=== PATIENT | female | born 1940 | race Caucasian/White ===

== ENCOUNTER 2018-12-18 14:02 | Emergency (ER) | payer OTHER ==
[2018-12-18] MEDS ORDERED: MEPERIDINE HCL 25 MG/0.5 ML ONE ×2 (14:39→16:12)
--- NOTE | 2018-12-18 15:36 | RAD REPORT ---
EXAM DESCRIPTION: RAD - Humerus Left - 12/18/2018 3:18 pm CLINICAL HISTORY: Left arm pain status post fall FINDINGS: An impaction fracture of the humeral neck suspected. The bones are osteoporotic
--- NOTE | 2018-12-18 15:43 | RAD REPORT ---
EXAM DESCRIPTION: USExtremity Venous Uni Ltd12/18/2018 3:38 pm CLINICAL HISTORY: left leg pain and swelling. COMPARISON: None. FINDINGS: Left common femoral, superficial femoral, popliteal and posterior tibial veins are compre ssible and demonstrate augmentation. Doppler demonstrates good flow. IMPRESSION: No evidence of deep venous thrombosis involving the left lower extremity.
--- NOTE | 2018-12-18 16:01 | EDPHYS ---
Physician Documentation [facility] Name: Hai Camp Age: 78 yrs Sex: Female : 1940 Arrival Date: 12/18/2018 Time: 14:04 Bed 25 Private MD: Arnoldo Farrell E ED Physician Christian Munoz HPI: 12/18 15:26 This 78 yrs old Female presents to ER via Wheelchair with complaints of Fall rn Injury. 15:26 Details of fall: The patient fell from an upright position. Onset: The symptoms/episode rn began/occurred just prior to arrival. Associated injuries: The patient sustained left arm. Severity of symptoms: At their worst the symptoms were moderate, in the emergency department the symptoms are unchanged. The patient has not experienced similar symptoms in the past. Reports fell, left arm tucked in, reports pain to left upper arm, also reports has been having left leg numbness and pain similar to her right sided sciatica and would like that checked as well. No loc, did not hit head. . Historical: - Allergies: 14:14 Codeine; la1 14:14 Cipro; la1 - PMHx: 14:14 Hypertension; la1 - Immunization history:: Adult Immunizations up to date. - Social history:: Smoking status: Patient/guardian denies using tobacco. - Immunization history: Last tetanus immunization: unknown. - Ebola Screening: : No symptoms or risks identified at this time. - Family history:: not pertinent. - Hospitalizations: : No recent hospitalization is reported. ROS: 15:26 Constitutional: Negative for fever, chills, and weight loss, Eyes: Negative for injury, rn pain, redness, and discharge, Neck: Negative for injury, pain, and swelling, Cardiovascular: Negative for chest pain, palpitations, and edema, Respiratory: Negative for shortness of breath, cough, wheezing, and pleuritic chest pain, Abdomen/GI: Negative for abdominal pain, nausea, vomiting, diarrhea, and constipation, Back: Negative for injury and pain, MS/Extremity: + left arm injury adn pain Skin: Negative for injury, rash, and discoloration, Neuro: Negative for headache, weakness, numbness, tingling, and seizure. Exam: 15:26 Constitutional: This is a well developed, well nourished patient who is awake, alert, rn appears in pain, holding left arm passive flexion and internal rotation Head/Face: Normocephalic, atraumatic. Eyes: Pupils equal round and reactive to light, extra-ocular motions intact. Lids and lashes normal. Conjunctiva and sclera are non-icteric and not injected. Cornea within normal limits. Periorbital areas with no swelling, redness, or edema. Neck: Trachea midline, no thyromegaly or masses palpated, and no cervical lymphadenopathy. Supple, full range of motion without nuchal rigidity, or vertebral point tenderness. No Meningismus. Chest/axilla: Nontender with no deformity. Back: No spinal tenderness. No costovertebral tenderness. Full range of motion. Skin: Warm, dry with normal turgor. Normal color with no rashes, no lesions, and no evidence of cellulitis. MS/ Extremity: Pulses equal, no cyanosis. Neurovascular intact. Full, normal range of motion. Equal circumference. Neuro: Awake and alert, GCS 15, oriented to person, place, time, and situation. Cranial nerves II-XII grossly intact. Motor strength 5/5 in all extremities. Sensory grossly intact. Cerebellar exam normal. Vital Signs: 14:14 Weight 79.38 kg; Height 5 ft. 5 in. (165.10 cm); la1 14:29 BP 161 / 81; Pulse 86; Resp 18; Temp 98.6(O); Pulse Ox 100% on R/A; aj1 15:30 BP 144 / 82; Pulse 81; Resp 18; Pulse Ox 98% on R/A; aj1 16:30 BP 141 / 82; Pulse 82; Resp 18; Pulse Ox 97% ; aj1 14:14 Body Mass Index 29.12 (79.38 kg, 165.10 cm) la1 Sophia Coma Score: 14:29 Eye Response: spontaneous(4). Verbal Response: oriented(5). Motor Response: obeys aj1 commands(6). Total: 15. 16:30 Eye Response: spontaneous(4). Verbal Response: oriented(5). Motor Response: obeys aj1 commands(6). Total: 15. Trauma Score (Adult): 14:29 Eye Response: spontaneous(1); Verbal Response: oriented(1); Motor Response: obeys aj1 commands(2); Systolic BP: > 89 mm Hg(4); Respiratory Rate: 10 to 29 per min(4); [place] Score: 15; Trauma Score: 12 15:30 Eye Response: spontaneous(1); Verbal Response: oriented(1); Motor Response: obeys aj1 commands(2); Systolic BP: > 89 mm Hg(4); Respiratory Rate: 10 to 29 per min(4); Sophia Score: 15; Trauma Score: 12 MDM: 14:09 Patient medically screened. rn 15:59 Differential diagnosis: contusion, fracture, sprain, strain. Data reviewed: vital rn signs, nurses notes, radiologic studies, doppler, plain films, and as a result, I will discharge patient. Counseling: I had a detailed discussion with the patient and/or guardian regarding: the historical points, exam findings, and any diagnostic results supporting the discharge/admit diagnosis, radiology results, the need for outpatient follow up, to return to the emergency department if symptoms worsen or persist or if there are any questions or concerns that arise at home. Special discussion: I discussed with the patient/guardian in detail that at this point there is no indication for admission to the hospital. It is understood, however, that if the symptoms persist or worsen the patient needs to return immediately for re-evaluation. Based on the history and exam findings, there is no indication for further emergent testing or inpatient evaluation. I discussed with the patient/guardian the need to see the orthopedic surgeon for further evaluation of the symptoms. 12/18 14:23 Order name: XRAY Humerus LEFT; Complete Time: 15:48 rn 12/18 14:23 Order name: Extremity Venous Uni Ltd US; Complete Time: 15:48 rn 12/18 14:24 Order name: Sling; Complete Time: 14:28 rn Administered Medications: 14:30 Drug: Demerol 25 mg Route: IM; Site: right deltoid; aj1 15:45 Follow up: Response: No adverse reaction aj1 16:06 Drug: Demerol 25 mg Route: IM; Site: right deltoid; aj1 16:47 Follow up: Response: No adverse reaction aj1 Disposition: 12/18/18 16:00 Discharged to Home. Impression: Acute, closed, left proximal humerus fracture, Radiculopathy, lumbar region. - Condition is Stable. - Discharge Instructions: Humerus Fracture Treated With Immobilization, Lumbosacral Radiculopathy. - Prescriptions for Cyclobenzaprine 10 mg Oral Tablet - take 1 tablet by ORAL route every 8 hours As needed; 30 tablet. Tramadol 50 mg Oral Tablet - take 1 tablet by ORAL route every 8 hours as needed; 30 tablet. - Medication Reconciliation Form, Thank You Letter, Antibiotic Education, Prescription Opioid Use form. - Follow up: Eris Huerta MD; When: As needed; Reason: Recheck today's complaints, Re-evaluation by your physician. - Problem is new. - Symptoms have improved. Signatures: Dispatcher [employer] EDMS Diana Donohue RN RN aj1 Christian Munoz MD MD rn Frankie An RN RN la1 Corrections: (The following items were deleted from the chart) 16:48 16:00 12/18/2018 16:00 Discharged to Home. Impression: Acute, closed, left proximal aj1 humerus fracture; Radiculopathy, lumbar region. Condition is Stable. Forms are Medication Reconciliation Form, Thank You Letter, Antibiotic Education, Prescription Opioid Use. Follow up: Eris Huerta; When: As needed; Reason: Recheck today's complaints, Re-evaluation by your physician. Problem is new. Symptoms have improved. rn
--- NOTE | 2018-12-18 16:01 | ER ---
Nurse's Notes [facility] Name: Hai Camp Age: 78 yrs Sex: Female : 1940 Arrival Date: 12/18/2018 Time: 14:04 Bed 25 Private MD: Arnoldo Farrell E Diagnosis: Acute, closed, left proximal humerus fracture;Radiculopathy, lumbar region Presentation: 12/18 14:13 Presenting complaint: Patient states: I have had left lower leg pain for one week and la1 today I fell because of it and I think I broke my left arm. Transition of care: patient was not received from another setting of care. Onset of symptoms was December 18, 2018. Risk Assessment: Do you want to hurt yourself or someone else? Patient reports no desire to harm self or others. Initial Sepsis Screen: Does the patient meet any 2 criteria? No. Patient's initial sepsis screen is negative. Does the patient have a suspected source of infection? No. Patient's initial sepsis screen is negative. Care prior to arrival: None. 14:13 Method Of Arrival: Wheelchair la1 14:13 Acuity: CAMELIA 3 la1 14:29 Mechanism of Injury: Fall from standing position. Trauma event details: Injury occurred aj1 in the [facility]. Trauma Activation: Not Applicable Physician: ED Physician; Name: ; Notified At: ; Arrived At: Physician: General Surgeon; Name: ; Notified At: ; Arrived At: Physician: Radiology; Name: ; Notified At: ; Arrived At: Physician: Respiratory; Name: ; Notified At: ; Arrived At: Physician: Lab; Name: ; Notified At: ; Arrived At: Historical: - Allergies: 14:14 Codeine; la1 14:14 Cipro; la1 - PMHx: 14:14 Hypertension; la1 - Immunization history:: Adult Immunizations up to date. - Social history:: Smoking status: Patient/guardian denies using tobacco. - Immunization history: Last tetanus immunization: unknown. - Ebola Screening: : No symptoms or risks identified at this time. - Family history:: not pertinent. - Hospitalizations: : No recent hospitalization is reported. Screenin:29 Abuse screen: Denies threats or abuse. Denies injuries from another. Tuberculosis aj1 screening: No symptoms or risk factors identified. 14:39 Nutritional screening: No deficits noted. aj1 16:46 Fall Risk Fall in past 12 months (25 points). No secondary diagnosis (0 pts). No IV (0 aj1 pts). Ambulatory Aid- None/Bed Rest/Nurse Assist (0 pts). Gait- Normal/Bed Rest/Wheelchair (0 pts) Mental Status- Oriented to own ability (0 pts). Total Pedroza Fall Scale indicates Low Risk Score (25-44 pts). As available Patient and Family Educated on Fall Prevention Program and strategies. Primary Survey: 14:29 NO uncontrolled hemorrhage observed. A: The patient is alert. Airway: patent. aj1 Breathing/Chest: Respiratory pattern: regular, Respiratory effort: spontaneous, unlabored. Circulation: Skin color: pink. Disability Alert. Exposure/Environment: There is no evidence of uncontrolled external bleeding. A warming method has been applied: A warm blanket has been provided to the patient. 15:30 Reassessment Airway Airway Patent Breathing/Chest Respiratory pattern Regular aj1 Respiratory effort Spontaneous Unlabored Circulation Pulses Palpable Color [place] Disability Alert. Secondary Survey: 14:29 HEENT: No deficits noted. Gastrointestinal: No deficits noted. : No deficits noted. aj1 Musculoskeletal: Range of motion: limited in left shoulder. Assessment: 14:29 General: Appears uncomfortable, Behavior is cooperative, restless. Pain: Complains of aj1 pain in left bicep and left tricep Pain currently is 10 out of 10 on a pain scale. Neuro: Level of Consciousness is awake, alert, obeys commands, Oriented to person, place, time, situation, Speech is normal. EENT: No signs and/or symptoms were reported regarding the EENT system. Cardiovascular: Patient's skin is warm and dry. Respiratory: Airway is patent Respiratory effort is even, unlabored, Respiratory pattern is regular, symmetrical. GI: No signs and/or symptoms were reported involving the gastrointestinal system. : No signs and/or symptoms were reported regarding the genitourinary system. Derm: Skin is pink, warm \T\ dry. normal. Musculoskeletal: Range of motion: limited in left shoulder. Injury Description: Patient fell onto her left arm. 15:30 Reassessment: Patient appears in no apparent distress at this time. No changes from aj1 previously documented assessment. Patient and/or family updated on plan of care and expected duration. Pain level reassessed. Patient is alert, oriented x 3, equal unlabored respirations, skin warm/dry/pink. 15:59 Reassessment: Dr. Munoz at bedside. aj1 16:30 Reassessment: Patient appears in no apparent distress at this time. No changes from aj1 previously documented assessment. Patient and/or family updated on plan of care and expected duration. Pain level reassessed. Patient is alert, oriented x 3, equal unlabored respirations, skin warm/dry/pink. Vital Signs: 14:14 Weight 79.38 kg; Height 5 ft. 5 in. (165.10 cm); la1 14:29 BP 161 / 81; Pulse 86; Resp 18; Temp 98.6(O); Pulse Ox 100% on R/A; aj1 15:30 BP 144 / 82; Pulse 81; Resp 18; Pulse Ox 98% on R/A; aj1 16:30 BP 141 / 82; Pulse 82; Resp 18; Pulse Ox 97% ; aj1 14:14 Body Mass Index 29.12 (79.38 kg, 165.10 cm) la1 [place] Coma Score: 14:29 Eye Response: spontaneous(4). Verbal Response: oriented(5). Motor Response: obeys aj1 commands(6). Total: 15. 16:30 Eye Response: spontaneous(4). Verbal Response: oriented(5). Motor Response: obeys aj1 commands(6). Total: 15. Trauma Score (Adult): 14:29 Eye Response: spontaneous(1); Verbal Response: oriented(1); Motor Response: obeys aj1 commands(2); Systolic BP: > 89 mm Hg(4); Respiratory Rate: 10 to 29 per min(4); [place] Score: 15; Trauma Score: 12 15:30 Eye Response: spontaneous(1); Verbal Response: oriented(1); Motor Response: obeys aj1 commands(2); Systolic BP: > 89 mm Hg(4); Respiratory Rate: 10 to 29 per min(4); Sophia Score: 15; Trauma Score: 12 ED Course: 14:04 Patient arrived in ED. mr 14:05 Arnoldo Farrell MD is Private Physician. mr 14:09 Christian Munoz MD is Attending Physician. rn 14:14 Triage completed. la1 14:15 Arm band placed on left wrist. la1 14:28 Diana Donohue, RN is Primary Nurse. aj1 14:29 Patient has correct armband on for positive identification. aj1 14:29 Patient maintains SpO2 saturation greater than 95% on room air. aj1 14:30 Thermoregulation: warm blanket given to patient. aj1 14:39 No provider procedures requiring assistance completed. aj1 15:18 XRAY Humerus LEFT In Process Unspecified. EDMS 15:38 Ultrasound completed. Patient tolerated well. Notified ED Physician skip. sg3 15:39 Extremity Venous Uni Ltd US In Process Unspecified. EDMS 15:59 Eris Heurta MD is Referral Physician. rn 16:45 Patient did not have IV access during this emergency room visit. aj1 Administered Medications: 14:30 Drug: Demerol 25 mg Route: IM; Site: right deltoid; aj1 15:45 Follow up: Response: No adverse reaction aj1 16:06 Drug: Demerol 25 mg Route: IM; Site: right deltoid; aj1 16:47 Follow up: Response: No adverse reaction aj1 Intake: 16:45 PO: 0ml; Total: 0ml. aj1 Outcome: 16:00 Discharge ordered by . rn 16:47 Discharged to home via wheelchair, with family. aj1 16:47 Condition: good 16:47 Discharge instructions given to patient, family, Instructed on discharge instructions, follow up and referral plans. medication usage, Demonstrated understanding of instructions, follow-up care, medications, Prescriptions given X 2. 16:47 Patient's length of stay in the Emergency Department was greater than 2 hours. Patient waiting for adequate pain relief prior to leaving ERPatient's length of stay extended due to 16:48 Patient left the ED. aj1 Signatures: Dispatcher [employer] EDME Diana Donohue, RN RN Jeanine James Christian Munoz MD MD rn Attema, Lee, RN RN Kirsten Saavedra sg3
== END 2018-12-18 16:48 | disposition home or self-care (01) ==
LOC: ER 14:02
DX: S42.202A Unspecified fracture of upper end of left humerus, initial encounter for closed fracture (principal); M54.16 Radiculopathy, lumbar region; W19.XXXA Unspecified fall, initial encounter; Y93.9 Activity, unspecified; Y92.9 Unspecified place or not applicable; Z88.1 Allergy status to other antibiotic agents; Z88.5 Allergy status to narcotic agent; I10 Essential (primary) hypertension
CPT/HCPCS: 73060; 93971; 96372; 99284; J2175 ×2

== ENCOUNTER 2020-02-12 16:56 | Emergency (ER) | payer OTHER ==
[2020-02-12] MEDS ORDERED: NA CHLORIDE 0.9% 500 ML ONE (17:30)
[2020-02-12 17:41] LABS: Absolute Lymphocytes (CBC) 1.5 K/uL (0.7-4.9); Basophils % 1.4 % (0-1.3); Hematocrit 41.3 % (36.0-45.0); Lymphocytes % 27.5 % (15.3-44.8); MPV 7.9 fL (7.6-11.3); RBC Red Blood Cell Count 4.31 M/uL (3.86-4.86)
--- NOTE | 2020-02-12 17:50 | RAD REPORT ---
EXAM DESCRIPTION: CT - Head Brain Wo Cont - 02/12/2020 5:36 pm CLINICAL HISTORY: SYNCOPE, dizziness, loss of consciousness, hypertension history, breast cancer his tory COMPARISON: No comparisons TECHNIQUE: Axial 5 mm thick images of the head were obtained without IV contrast. All CT scans are performed using dose optimization technique as appropriate and may include automated exposure control or mA/KV adjustment according to patient size. FINDINGS: No intracranial hemorrhage, mass, edema or shift of mid-line structures. No acute infarcti on changes seen. No cortical edema or sulcal effacement. Mild to moderate atrophy and mild to moderat e chronic ischemic changes are present. Ventricles are in proportion to volume loss. Arterial and phy siologic calcifications are present. Mastoid air cells and visualized portions of the paranasal sinuses are clear. No acute bony findings. IMPRESSION: No acute intracranial finding identifiable. Mild to moderate atrophy and chronic ischemic change. Chronic ischemic changes can mask nonhemorrhagic acute infarction. MR brain followup can be obtained if there is ongoing concern for acute ischemia.
--- NOTE | 2020-02-12 17:56 | RAD REPORT ---
EXAM DESCRIPTION: CT - Pelvis Wo Cont - 02/12/2020 5:36 pm CLINICAL HISTORY: fall, blunt trauma, pelvic and coccyx pain COMPARISON: No comparisons TECHNIQUE: Axial 2 millimeter thick images the pelvis were obtained. Sagittal and coronal reformatte d images were generated and reviewed. The CT scan was performed using dose optimization techniques as appropriate to a performed exam incl uding one or more of the following: Automated exposure control, adjustment of the mA and/or kV accord ing to patient size (this includes techniques or standardized protocols for targeted exams where dose is matched to indication/reason for exam) and use of iterative reconstruction technique. FINDINGS: No acute bowel finding identifiable. Diverticulosis is present. This is not a complete ass essment of the GI tract. Within the peritoneal and retroperitoneal spaces of the pelvis there is no m ass, hematoma or suspicious soft tissue finding identifiable. No skeletal muscle abnormality. No case giuseppe or mass of the soft tissues identifiable. Lower lumbar degenerative changes are present. Prominent disc bulge changes are evident at L5-S1. Can al is borderline stenotic. No sacral ala fracture identified. The sacrum and coccyx segments are inta ct. No fracture of the bony pelvis identifiable. Patient has advanced bilateral hip joint degenerativ e changes. Advanced SI joint degenerative changes also present. No AVN or focal femoral head abnormal ity. No pathologic bone process seen. IMPRESSION: No acute finding of the sacrum or coccyx identifiable. Advanced bilateral hip joint degenerative change without acute finding.
[2020-02-12 18:00] LABS: BUN Blood Urea Nitrogen 27 mg/dL (7-18); Bicarbonate 28 mmol/L (21-32); Glucose Level 97 mg/dL (74-106); Sodium Level 139 mmol/L (136-145); Troponin (Emerg Dept Use Only) < 0.02 ng/mL (0.0-0.045)
[2020-02-12 18:01] LABS: Magnesium 2.4 mg/dL (1.8-2.4); Potassium 3.9 mmol/L (3.5-5.1)
[2020-02-12 18:02] LABS: Protime INR 1.03
--- NOTE | 2020-02-12 18:27 | ER ---
Nurse's Notes [facility] Name: Hai Camp Age: 79 yrs Sex: Female : 1940 Arrival Date: 02/12/2020 Time: 16:52 Bed 25 Private MD: Diagnosis: Syncope and collapse;Dehydration Presentation: 02/11 16:52 Chief complaint: EMS states: Dizziness twice that happened today. On the 3rd time Pt wh had syncopal episode with + LOC. Pt fell backward hurting tailbone. Pt denies any tremors or convulsions afterwards. Pt denies fever, chest pain or any other associated symptoms. Coronavirus screen: Patient denies fever greater than 100.4F, cough, shortness of breath, or difficulty breathing. Ebola Screen: Patient negative for fever greater than or equal to 101.5 degrees Fahrenheit, and additional compatible Ebola Virus Disease symptoms Patient denies exposure to infectious person. Initial Sepsis Screen: Does the patient meet any 2 criteria? No. Patient's initial sepsis screen is negative. Does the patient have a suspected source of infection? No. Patient's initial sepsis screen is negative. Risk Assessment: Do you want to hurt yourself or someone else? Patient reports no desire to harm self or others. Care prior to arrival: Glucose check: 128 NSR on EKG. 16:52 Method Of Arrival: EMS: [facility] 16:52 Acuity: CAMELIA 3 17:00 Onset of symptoms was February 12, 2020. Historical: - Allergies: 16:57 Cipro; 16:57 Codeine; - Home Meds: 16:57 losartan oral oral [Active]; - PMHx: 16:57 Hypertension; Breast Cancer; - PSHx: 16:57 Cholecystectomy; Hysterectomy; - Immunization history:: Adult Immunizations up to date. - Social history:: Smoking status: Patient/guardian denies using. - Family history:: not pertinent. - Hospitalizations: : No recent hospitalization is reported. Screenin:58 Abuse screen: Denies threats or abuse. Denies injuries from another. Nutritional screening: No deficits noted. Tuberculosis screening: No symptoms or risk factors identified. Fall Risk Fall in past 12 months (25 points). 16:59 VAN Screening: Arm Drift: Patient shows no arm weakness. Patient is VAN negative. wh Visual Disturbance: No visual disturbance noted. Aphasia: No aphasia noted. Neglect: No neglect noted. Assessment: 16:57 General: Appears in no apparent distress. Behavior is calm, cooperative, appropriate wh for age. Pain: Denies pain. Neuro: Level of Consciousness is awake, alert, obeys commands, Oriented to person, place, time, situation, Appropriate for age Survey Project Manager are equal bilaterally Moves all extremities. Gait is steady, Speech is normal, Facial symmetry appears normal, Pupils are PERRLA, Reports dizziness, Lightheadedness. Cardiovascular: Heart tones S1 S2 Rhythm is regular. Respiratory: Airway is patent Respiratory effort is even, unlabored, Respiratory pattern is regular, symmetrical, Breath sounds are clear bilaterally. GI: Abdomen is flat, non-distended. : No signs and/or symptoms were reported regarding the genitourinary system. EENT: No signs and/or symptoms were reported regarding the EENT system. Derm: Skin is intact, is healthy with good turgor, Skin is pink, warm \T\ dry. normal. Musculoskeletal: Circulation, motion, and sensation intact. 17:50 Reassessment: Patient appears in no apparent distress at this time. No changes from previously documented assessment. Patient and/or family updated on plan of care and expected duration. Pain level reassessed. Patient is alert, oriented x 3, equal unlabored respirations, skin warm/dry/pink. 18:59 Reassessment: Patient appears in no apparent distress at this time. No changes from previously documented assessment. Patient and/or family updated on plan of care and expected duration. Pain level reassessed. Patient is alert, oriented x 3, equal unlabored respirations, skin warm/dry/pink. Patient states feeling better. Patient states symptoms have improved. Vital Signs: 16:52 BP 131 / 72; Pulse 88; Resp 18; Temp 98.2; Pulse Ox 96% ; Weight 81.65 kg; Height 5 ft. 5 in. (165.10 cm); 17:30 BP 130 / 81; Pulse 90; Resp 18; Pulse Ox 95% on R/A; wh 18:30 BP 133 / 69; Pulse 75; Resp 18; Pulse Ox 95% on R/A; wh 16:52 Body Mass Index 29.95 (81.65 kg, 165.10 cm) ED Course: 16:52 Patient arrived in ED. 16:56 Triage completed. 16:57 Christian Munoz MD is Attending Physician. rn 16:59 Arm band placed on right wrist. 17:00 Patient has correct armband on for positive identification. Placed in gown. Bed in low wh position. Call light in reach. Side rails up X 1. shingle carrier on. Pulse ox on. NIBP on. 17:07 Stephen Barrett is Primary Nurse. 17:15 Inserted saline lock: 20 gauge in right wrist, using aseptic technique. Blood collected. 19:01 No provider procedures requiring assistance completed. IV discontinued, intact, bleeding controlled, No redness/swelling at site. Administered Medications: 17:32 Drug: NS 0.9% 500 ml Route: IV; Rate: bolus; Site: right wrist; 19:05 Follow up: Response: No adverse reaction; IV Status: Completed infusion Point of Care Testing: Blood Glucose: 17:15 Blood Glucose: 97 mg/dL; Ranges: Outcome: 18:22 Discharge ordered by . rn 19:04 Discharged to home ambulatory. 19:04 Condition: stable 19:04 Discharge instructions given to patient, Instructed on discharge instructions, follow up and referral plans. POC Demonstrated understanding of instructions, follow-up care, POC 19:05 Patient left the ED. Signatures: Christian Munoz MD MD rn [place], Winsy Corrections: (The following items were deleted from the chart) 19:01 17:15 Inserted saline lock: 20 gauge in right wrist, using aseptic technique. [facility]
--- NOTE | 2020-02-12 18:28 | EDPHYS ---
Physician Documentation [facility] Name: Hai Camp Age: 79 yrs Sex: Female : 1940 Arrival Date: 02/12/2020 Time: 16:52 Bed 25 Private MD: ED Physician Christian Munoz HPI: 02/11 17:19 This 79 yrs old Female presents to ER via EMS with complaints of Syncope. rn 17:19 The patient has experienced syncope. Onset: The symptoms/episode began/occurred just rn prior to arrival. Duration: This was a single episode. Context: occurred at home, occurred while the patient was standing, walking. Associated injury: Other:. Associated signs and symptoms: Pertinent negatives: abdominal pain, confusion, headache, seizure, shortness of breath, vertigo, vomiting, weakness. The patient has not experienced similar symptoms in the past. Reports stood up at home, began walking, did not feel chest pain/headache/sob, then woke her up on floor, did feel lightheaded but does not remember passing out. reports hurt tailbone from fall she presumes, but denies pain elsewhere. No hx of dvt/PE, no recent travel. . Historical: - Allergies: 16:57 Cipro; 16:57 Codeine; - Home Meds: 16:57 losartan oral oral [Active]; - PMHx: 16:57 Hypertension; Breast Cancer; - PSHx: 16:57 Cholecystectomy; Hysterectomy; - Immunization history:: Adult Immunizations up to date. - Social history:: Smoking status: Patient/guardian denies using. - Family history:: not pertinent. - Hospitalizations: : No recent hospitalization is reported. ROS: 17:19 Constitutional: Negative for fever, chills, and weight loss, Eyes: Negative for injury, rn pain, redness, and discharge, Neck: Negative for injury, pain, and swelling, Cardiovascular: Negative for chest pain, palpitations, and edema, Respiratory: Negative for shortness of breath, cough, wheezing, and pleuritic chest pain, Abdomen/GI: Negative for abdominal pain, nausea, vomiting, diarrhea, and constipation, Back: + tailbone pain and injury MS/Extremity: Negative for injury and deformity, Skin: Negative for injury, rash, and discoloration, Neuro: Negative for headache, weakness, numbness, tingling, and seizure. Exam: 17:19 Constitutional: This is a well developed, well nourished patient who is awake, alert, rn and in no acute distress. Head/Face: Normocephalic, atraumatic. Eyes: Pupils equal round and reactive to light, extra-ocular motions intact. ENT: dry MM Neck: Supple, full range of motion without nuchal rigidity, or vertebral point tenderness. No Meningismus. Cardiovascular: Regular rate and rhythm. No pulse deficits. Respiratory: Lungs have equal breath sounds bilaterally, clear to auscultation. No increased work of breathing, no retractions or nasal flaring. Abdomen/GI: soft, non-tender Back: No spinal tenderness. + tenderness coccyx MS/ Extremity: Pulses equal, no cyanosis. Neurovascular intact. Full, normal range of motion. Equal circumference. Neuro: Awake and alert, GCS 15, oriented to person, place, time, and situation. Cranial nerves II-XII grossly intact. Motor strength 5/5 in all extremities. Sensory grossly intact. Cerebellar exam normal. 17:29 ECG was reviewed by the Attending Physician. rn Vital Signs: 16:52 BP 131 / 72; Pulse 88; Resp 18; Temp 98.2; Pulse Ox 96% ; Weight 81.65 kg; Height 5 ft. wh 5 in. (165.10 cm); 17:30 BP 130 / 81; Pulse 90; Resp 18; Pulse Ox 95% on R/A; wh 18:30 BP 133 / 69; Pulse 75; Resp 18; Pulse Ox 95% on R/A; wh 16:52 Body Mass Index 29.95 (81.65 kg, 165.10 cm) MDM: 16:57 Patient medically screened. rn 18:19 Differential Diagnosis: cardiac arrhythmia, cerebrovascular accident, idiopathic rn syncope, transient ischemic attack, vasovagal episode, dehydration, volume depletion. 18:20 Data reviewed: vital signs, nurses notes, lab test result(s), EKG, radiologic studies, rn CT scan, and as a result, I will discharge patient. Counseling: I had a detailed discussion with the patient and/or guardian regarding: the historical points, exam findings, and any diagnostic results supporting the discharge/admit diagnosis, lab results, radiology results, the need for outpatient follow up, to return to the emergency department if symptoms worsen or persist or if there are any questions or concerns that arise at home. Response to treatment: the patient's symptoms have markedly improved after treatment, the patient's condition has returned to base line, the patient is now symptom free, ambulatory around ER, asymptomatic, feels better, only finding in bloodwork is dehydration. No acute findings ct head or pelvis. , and as a result, I will discharge patient. Special discussion: I discussed with the patient/guardian in detail that at this point there is no indication for admission to the hospital. It is understood, however, that if the symptoms persist or worsen the patient needs to return immediately for re-evaluation. Based on the history and exam findings, there is no indication for further emergent testing or inpatient evaluation. I discussed with the patient/guardian the need to see the primary care provider for further evaluation of the symptoms. 02/11 17:09 Order name: Basic Metabolic Panel 02/11 17:09 Order name: CBC with Diff 02/11 17:09 Order name: Magnesium 02/11 17:09 Order name: Protime (+inr) 02/11 17:09 Order name: Ptt, Activated 02/11 17:09 Order name: Troponin (emerg Dept Use Only) 02/11 17:09 Order name: CT Head Brain wo Cont 02/11 17:09 Order name: CT Pelvis wo Cont 02/11 17:45 Order name: CBC with Automated Diff; Complete Time: 18:11 [facility] 02/11 18:05 Order name: Basic Metabolic Panel [facility] 02/11 18:05 Order name: Troponin (Emerg Dept Use Only) [facility] 02/11 18:05 Order name: Magnesium [facility] 02/11 18:07 Order name: Protime (+INR) [facility] 02/11 18:07 Order name: PTT, Activated Partial Thromb [facility] 02/11 17:09 Order name: EKG; Complete Time: 17:12 02/11 17:09 Order name: Cardiac monitoring; Complete Time: 17:22 02/11 17:09 Order name: EKG - Nurse/Tech; Complete Time: 17:22 02/11 17:09 Order name: IV Saline Lock; Complete Time: 17:02/11 17:09 Order name: Labs collected and sent; Complete Time: 17:02/11 17:09 Order name: NPO; Complete Time: 17: rn 02/11 17: Order name: O2 Per Protocol; Complete Time: : rn 02/11 17: Order name: O2 Sat Monitoring; Complete Time: : rn EC: Rate is 86 beats/min. Rhythm is regular. QRS [place] is Normal. DC interval is normal. QRS rn interval is normal. QT interval is normal. No Q waves. T waves are Normal. No ST changes noted. Clinical impression: Normal ECG. Interpreted by me. Reviewed by me. Administered Medications: :32 Drug: NS 0.9% 500 ml Route: IV; Rate: bolus; Site: right wrist; 19:05 Follow up: Response: No adverse reaction; IV Status: Completed infusion Point of Care Testing: Blood Glucose: 17: Blood Glucose: 97 mg/dL; Ranges: Critical Glucose Levels:Adult <50 mg/dl or >400 mg/dl <40 mg/dl or >180 mg/dl Disposition: 02/12/20 18:22 Discharged to Home. Impression: Syncope and collapse, Dehydration. - Condition is Stable. - Discharge Instructions: Dehydration, Adult, Syncope. - Medication Reconciliation Form, Thank You Letter, Antibiotic Education, Prescription Opioid Use form. - Follow up: Private Physician; When: As needed; Reason: Recheck today's complaints, Re-evaluation by your physician. - Problem is new. - Symptoms have improved. Signatures: Dispatcher [employer] EDMS Christian Munoz MD MD rn [place], Winsy Corrections: (The following items were deleted from the chart) 18: 17: Urine Dipstick-Ancillary ordered. rn rn 19:05 18:22 02/12/2020 18:22 Discharged to Home. Impression: Syncope and collapse; wh Dehydration. Condition is Stable. Forms are Medication Reconciliation Form, Thank You Letter, Antibiotic Education, Prescription Opioid Use. Follow up: Private Physician; When: As needed; Reason: Recheck today's complaints, Re-evaluation by your physician. Problem is new. Symptoms have improved. rn
[2020-02-12 19:47] VITALS: O2SAT 95
[2020-02-12 19:48] VITALS: BP 133/69
--- NOTE | 2020-02-13 10:00 | EKG ---
Test Date: 2020-02-12 Test Time: 17:12:17 Senior Program Planner: RICHY MEASUREMENT RESULTS: Intervals: Rate: 86 NV: 132 QRSD: 80 QT: 368 QTc: 440 [place]: P: 58 NV: 132 QRS: 9 T: 60 INTERPRETIVE STATEMENTS: Normal sinus rhythm Normal ECG Compared to ECG 01/26/2001 08:14:00 No significant changes Electronically Signed On 02-13-20 09:59:55 CDT by Brent Mackay
== END 2020-02-12 19:05 | disposition home or self-care (01) ==
LOC: ER 16:56
DX: E86.0 Dehydration (principal); I10 Essential (primary) hypertension; Z85.3 Personal history of malignant neoplasm of breast; Z88.1 Allergy status to other antibiotic agents; Z88.5 Allergy status to narcotic agent
CPT/HCPCS: 96361; 93005; 85025; 80048; 36415; 83735; 85610; 85730; 84484; 70450; 72192; 96360; 99284; J7040

== ENCOUNTER 2023-01-29 14:43 | Emergency (ER) | payer OTHER ==
--- OUTSIDE RECORDS SUMMARY | 2023-01-29 14:49 | XMS REPORT | Continuity of Care Document ---
:1940 Author Organization [facility] t Address [address] [place] [address] [address] [place] [address] Care Team Providers Name Role Phone ADRIAN SALES Primary Care Physician Unavailable Deena Jay Attending Clinician DEENA JAY Attending Clinician Unavailable Pob, Adc Lab Main Attending Clinician Unavailable Bhupinder Gan MD Attending Clinician BHUPINDER GAN Attending Clinician Unavailable Doctor Unassigned, [place]acle Attending Clinician Unavailable VISIT, NURSE UATS Attending Clinician Unavailable VISIT, MED_ASST UAWC Attending Clinician Unavailable Peng Joel Attending Clinician Unavailable COLLIN LORENZO Attending Clinician Unavailable Peng Joel Admitting Clinician Unavailable UNDEFINED Admitting Clinician Unavailable Payers Payer Name Policy Type Policy Number Effective Date Expiration Date S ource Problems This patient has no known problems. Allergies, Adverse Reactions, Alerts Allergy Allergy Status Severity Reaction(s) Onset Inactive Treating Comm ents Source Name Type Date Date Clinician codeine DA Active SV 2020-0 [facility] 9-15 Clear 00:00: [place] [address] [facility] ciproflo DA Active SV 2020-0 [facility] xacin 9-15 Clear 00:00: [place] [address] [facility] codeine DA Active SV VOMITTING 2020-0 [facility] 9-15 Clear 00:00: [place] [address] [facility] ciproflo DA Active SV RASH 2020-0 [facility] xacin 9-15 Clear 00:00: [place] [address] [facility] NO KNOWN Drug Active Univers ALLERGIE Class ity of [facility] Social History Social Habit Start Date Stop Date Quantity Comments Source Sex Assigned At [birth year] [facility] 00:00:00 00:00:00 Medical Branch Smoking Status Start Date Stop Date Source Tobacco smoking consumption [facility] Medical unknown Branch Medications This patient has no known medications. Immunizations Ordered Filled Immunization Date Status Comments Sourc e Immunization Name Name SARS-COV-2 COVID-19 2021-01-15 Completed Unive rsity of MODERNA 12+ YRS 00:00:00 [place] [facility] VACCINE Branch SARS-COV-2 COVID-19 2021-01-15 Completed Unive rsity of MODERNA 12+ YRS 00:00:00 [place] [facility] VACCINE [facility] SARS-COV-2 COVID-19 2020-12-18 Completed Unive rsity of MODERNA 12+ YRS 00:00:00 [place] [facility] VACCINE Branch SARS-COV-2 COVID-19 2020-12-18 Completed Unive rsity of MODERNA 12+ YRS 00:00:00 [facility] ical VACCINE Branch Procedures Procedure Date / Time Performed Performing Clinician Lucie e ASSIGNMENT OF BENEFITS 2022-12-17 17:20:35 Doctor Unassigned, No [facility] Name Medical Branch [id number] 2021-08-12 00:00:00 [facility] Or [facility] Encounters Start End Encounter Admission Attending Care Care Encounter Source Date/Time Date/Time Type Type Clinicians Facility Department ID 2023-01-22 2023-01-22 Outpatient Staller, [facility]PL MHPL [id number] 07:05:00 11:57:00 Deena L 02 2023-01-22 2023-01-22 Outpatient STALLER, MHBL MARKY [id number] MHBL 07:05:00 11:57:00 DEENA 2022-12-28 2022-12-28 Outpatient Staller, MHMG MG [id number] 10:15:00 23:59:59 Deena L 08 2022-12-17 2022-12-17 Senior Lead Project Manager Mele, Adc Lab Main [facility] 1.2.8 [id number] [id number] Univers 11:45:00 12:00:00 Visit Bhupinder Gan [id number] ity [facility] [id number] Alison s PROFESSIO [phone] [address] 2022-12-17 2022-12-17 Outpatient R MALIK [facility] [id number] Univers 11:45:00 11:45:00 BHUPINDER ityony [facility] 2022-12-17 2022-12-17 Orders Doctor SUNIL [id number] Univers 00:00:00 00:00:00 Only Unassigned, MASON [id number] ity of [facility] [id number] Benjamín as [phone] [address] 2022-12-11 2022-12-11 Outpatient STALLER, MHBL MARKY [id number] MHBL 08:09:00 12:32:00 DEENA 2022-12-11 2022-12-11 Outpatient Staller, MHPL MHPL [id number] 08:09:00 12:32:00 Deena L 2022-11-27 2022-11-27 Outpatient Staller, MHMG MHMG [id number] 09:30:00 23:59:59 Deena L 07 2022-11-27 2022-11-27 Outpatient VISIT, MG MG [id number] 09:30:00 09:30:00 NURSE NANCY 06 2022-11-24 2022-11-24 Outpatient Staller, MG MG [id number] 15:50:00 15:50:00 Deena L 04 2022-11-02 2022-11-02 Outpatient MISTY, MHBL MARKY [id number] MHBL 11:00:00 23:35:00 DEENA 2022-10-19 2022-10-19 Outpatient Misty, [facility] [id number] 15:30:00 23:59:59 Deena L 2022-09-14 2022-09-14 Outpatient Misty, [facility] [id number] 15:30:00 23:59:59 Deena L 2022-07-23 2022-07-23 Outpatient VISIT, [facility] [id number] 08:30:00 08:30:00 MED_ASST 00 [facility] 2021-08-12 2021-08-13 Inpatient BECK Joel [facility] SURG [id number] [facility] 13:05:00 14:52:00 Peng 38 [facility] 2021-08-06 2021-08-06 Outpatient BECK Joel HCATO 3DAY [id number] [facility] 09:00:00 23:00:00 Peng 83 [facility] 2021-08-06 2021-08-06 Outpatient Marycruz, HCACL LABO [id number] [facility] 17:25:00 17:25:00 Peng 94 [facility] 2021-01-15 2021-01-15 Outpatient Chika LORENZO [facility] [id number] Univers 08:20:00 08:20:00 COLLIN [id number] [facility] 2021-01-15 2021-01-15 Outpatient Chika LORENZO [facility] [id number] [facility] 08:20:00 08:20:00 COLLIN [facility] 2020-12-18 2020-12-18 Outpatient Chika LORENZO [facility] [id number] Univers 08:40:00 08:40:00 COLLIN [facility] Results Test Description Test Time Test Comments Results Result [facility] e Comments - XR PELVIS 11/232021-08-13 VIEWS 09:15:00 [facility] : 1940 Sex: F Patient Name: KULDEEP SUERO Unit No: [id number] EXAMS: CPT CODE: [id number] XR PELVIS 1/2 VIEWS 97020 INTRAOPERATIVE LEG LENGTH FILM COMMENT: COMPARISON: No prior exams available. In progress left hip replacement is noted. AP portable left hip COMMENT: The patient is status post joint replacement which is articulating normally. at 0915 Reported and signed by: Moy Montiel MD CC: Peng Joel Technologist: HEIKE FONTANA RT(R) Transcribed D/ (0915) tERINL [facility] NAME: KULDEEP SUERO [id number] [facility] PHYS: Peng Butt MD : 1940 AGE: 81 SEX: F [place] [address] LOC: Y.306 A PHONE #: [phone] EXAM DATE: 08/12/2021 STATUS: ADM IN FAX #: [phone] RAD #: D/C DT PAGE 1 Signed Report Patient Name: KULDEEP SUERO Unit No: [id number] EXAMS: CPT CODE: [id number] XR PELVIS 1/2 VIEWS 05332 (Continued) Orig Print D/T: S: 08/13/2021 (0918) [facility] NAME: KULDEEP SUERO [id number] [facility] PHYS: Peng Butt MD : 1940 AGE: 81 SEX: F [place] [address] LOC: Y.306 A PHONE #: [phone] EXAM DATE: 08/12/2021 STATUS: ADM IN FAX #: [phone] RAD #: D/C DT PAGE 2 Signed Report - XR PELVIS /2021-08-13 VIEWS 09:15:00 [facility] 1940 Sex: F Patient Name: KULDEEP SUREO Unit No: [id number] EXAMS: CPT CODE: [id number] XR PELVIS 11/23 VIEWS 91215 INTRAOPERATIVE LEG LENGTH FILM COMMENT: COMPARISON: No prior exams available. In progress left hip replacement is noted. AP portable left hip COMMENT: The patient is status post joint replacement which is articulating normally. at 0915 Reported and signed by: Moy Montiel MD CC: Peng Joel Technologist: NAYANA YANCEY (RT.R) Transcribed D/ (15) tERINL [facility] NAME: KULDEEP SUERO [id number] [facility] PHYS: Peng Butt MD : 1940 AGE: 81 SEX: F [place], [place] [address] LOC: Y.306 A PHONE #: [phone] EXAM DATE: 08/12/2021 STATUS: ADM IN FAX #: [phone] RAD #: D/C DT PAGE 1 Signed Report Patient Name: KULDEEP SUERO Unit No: [id number] EXAMS: CPT CODE: [id number] XR PELVIS 1/2 VIEWS 87617 (Continued) Orig Print D/T: S: 08/13/2021 (0918) [facility] NAME: KULDEEP SUERO [address] [facility] Main PHYS: Peng Butt MD : 1940 AGE: 81 SEX: F [place], [place] [address] LOC: Y.306 A PHONE #: [phone] EXAM DATE: 08/12/2021 STATUS: ADM IN FAX #: [phone] RAD #: D/C DT PAGE 2 Signed Report BASIC METABOLIC PANEL 2021-08-13 06:48:00 Test Item Value Reference Range Interpretation Comme nts SODIUM (test code = NA) 139 mmol/L 136-145 N POTASSIUM (test code = K) 4.8 mmol/L 3.5-5.1 N CHLORIDE (test code = CL) 104.0 mmol/L 98-107 N CARBON DIOXIDE (test code = 26.8 mmol/L 21-32 N CO2) GLUCOSE (test code = GLU) 125 mg/dL 70-110 H BLOOD UREA NITROGEN (test code 32 mg/dL 7-18 H = BUN) GLOMERULAR FILTRATION RATE 34.7 >60 U nit of measure: mL/min/1.73 (test code = GFR) [id number] Range:Healthy Adults >90 mL/m in/1.73 m2 For Chronic Kidney Disease: Stage II Mild Decreas e in GFR 60-90 Stage III Moder ate Decrease in GFR 30-59 St age IV Severe Decrease in GFR 15-29 Stage V Kidney Failure <15 CREATININE (test code = CREAT) 1.45 mg/dL 0.55-1.30 H CALCIUM (test code = CA) 8.4 mg/dL 8.2-10.1 N HGB [id number] 06:11:00 Test Item Value Reference Range Interpretation Comments HEMOGLOBIN (test code = HGB) 10.3 g/dL 12-16 L HEMATOCRIT (test code = HCT) 30.5 % 37-47 L SPECIMEN COMMENT: POD #1Novel Coronavirus 2019 [id number] 10:02:00 Test Item Value Reference Range Interpretation Comments Novel Coronavirus Negative Negative Positive r esults are 2019 Inhouse (test indicativ e of the presence code = COVNONPUI) ofSARS-CoV -2 RNA, clinical correlation wit h patient historyand othe r diagnostic info rmation is necessary to determinepatien t infection status. Positiv e results do not rule out bacterial infection or co -infection with other viru ses. Negative result s do not preclude SARS-C oV-2 infection andsh ould not be used as the cherelle e basis for patient managementdecis ions. Negative result s must be combined with otherclinical observations, p atient history, and epidemiological information . Detection of SARS-CoV-2 RNA may be affe cted bysample collec tion methods, storag e conditions, and /or stageof infection. Dixie l RNA mutations, vacc inations, antiviraltherap eutics, antibiotics, chemotherapeuti c orimmunosuppres patrick drugs have not been e valuated for effectson d etection. Results are for the identification of SARS-CoV-2 RNA usingthe Kleermail M2000 Sy stem under the FDA Emergen cy UseAuthorizatio n. The testing is perf ormed by personneltrakeysha d in the procedures for the Zepeda M2000 molecular diagnostic SARS-CoV-2 assa y in vitro. Novel Coronavirus 2018 [id number] 10:02:00 Test Item Value Reference Range Interpretation Comments Novel Coronavirus Negative Negative Positive r esults are 2019 Inhouse (test indicativ e of the presence code = COVNONPUI) ofSARS-CoV -2 RNA, clinical correlation wit h patient historyand othe r diagnostic info rmation is necessary to determinepatien t infection status. Positiv e results do not rule out bacterial infection or co -infection with other viru ses. Negative result s do not preclude SARS-C oV-2 infection andsh ould not be used as the cherelle e basis for patient managementdecis ions. Negative result s must be combined with otherclinical observations, p atient history, and epidemiological information . Detection of SARS-CoV-2 RNA may be affe cted bysample collec tion methods, storag e conditions, and /or stageof infection. Dixie l RNA mutations, vacc inations, antiviraltherap eutics, antibiotics, chemotherapeuti c orimmunosuppres patrick drugs have not been e valuated for effectson d etection. Results are for the identification of SARS-CoV-2 RNA usingthe Kleermail M2000 Sy stem under the FDA Emergen cy UseAuthorizatio n. The testing is perf ormed by honey marks in the procedures for the Zepeda M2000 molecular diagnostic SARS-CoV-2 assa y in vitro. COMPREHENSIVE METABOLIC [id number] 16:01:00 Test Item Value Reference Range Interpretation Comments SODIUM (test code = 140 mmol/L 136-145 N NA) POTASSIUM (test code = 3.8 mmol/L 3.5-5.1 N K) CHLORIDE (test code = 103.0 mmol/L 98-107 N CL) CARBON DIOXIDE (test 30.0 mmol/L 21-32 N code = CO2) GLUCOSE (test code = 81 mg/dL 70-110 N GLU) BLOOD UREA NITROGEN 24 mg/dL 7-18 H (test code = BUN) GLOMERULAR FILTRATION 38.4 >60 Unit o f measure: RATE (test code = GFR) mL/mi n/1.73 [id number] Range:Healthy Adults >90 mL/min/1.73 m2 For Chronic Kidney Disease: Stage II Mild Decrease i n GFR 60-90 Stage III Moderate Decre ase in GFR 30-59 St age IV Severe Decre ase in GFR 15-29 St age V Kidney Failur e <15 CREATININE (test code 1.33 mg/dL 0.55-1.30 H = CREAT) TOTAL PROTEIN (test 7.1 g/dL 6.4-8.2 N code = PROT) ALBUMIN (test code = 3.7 g/dL 3.4-5.0 N ALB) GLOBULIN (test code = 3.4 g/dL 2.2-4.2 N GLOB) ALBUMIN/GLOBULIN RATIO 1.1 0.7-2.0 N (test code = A/G) CALCIUM (test code = 9.1 mg/dL 8.2-10.1 N CA) BILIRUBIN TOTAL (test 0.50 mg/dL 0.2-1.00 N code = BILT) SGOT/AST (test code = 12.0 U/L 15-37 L AST) SGPT/ALT (test code = 19.0 U/L 12-78 N Please note new ALT) normal range. ALKALINE PHOSPHATASE 58 U/L 46-116 N TOTAL (test code = ALKP) PROTHROMBIN [id number] 16:01:00 Test Item Value Reference Range Interpretation Comments PROTHROMBIN TIME 12.0 secs 10.1-12.5 N PATIENT (test code = PTP) INTERNATIONAL NORMAL 1.05 <2.0 RECOMME NDED THERAPEUTIC RATIO (test code = RANGE FOR ORAL INR) ANTICOAGULANTTR EATMENT: CONDITION INRPr ophylaxis of venous throm bosis in 2.0 - 3.0 high- risk medical or surg ical patientsTreatme nt of venous thrombos is 2.0 - 3.0Prevention o f embolism 2.0 - 3.0Prevention o f recurrent embol ism, or 3.0 - 4.5 patie nts with mechanical pros thetic intravascular v walters IS PATIENT ON ANTICOAGULANTS ? [place]as Lab been notified if Patient is on Heparin Drip? NOIf Yes, orderCBC, OCCULT BLOOD, PT every other day NTHROMBOPLASTIN TIME [id number] 16:01:00 Test Item Value Reference Range Interpretation Comments PTT ACTIVATED (test code = APTT) 29.2 secs 24.9-37.0 N IS PATIENT ON ANTICOAGULANTS ? NHas Lab been notified if Patient is on Heparin Drip? NOIf Yes, orderCBC, OCCULT BLOOD, PT every other day NCBC W/AUTO DIFF 2021-08-06 15:18:00 Test Item Value Reference Range Interpretation Comments WHITE BLOOD CELL (test code = WBC) 5.6 K/mm3 5.8-11.0 L RED BLOOD CELL (test code = RBC) 3.92 M/mm3 4.2-5.4 L HEMOGLOBIN (test code = HGB) 12.7 g/dL 12-16 N HEMATOCRIT (test code = HCT) 37.7 % 37-47 N MEAN CELL VOLUME (test code = MCV) 96 fL 80-98 N MEAN CELL HGB (test code = MCH) 32.4 pg 27-34 N MEAN CELL HGB CONCENTRATION (test 33.7 g/dL 30.8-34.1 N code = MCHC) RED CELL DISTRIBUTION WIDTH (test 12.5 % 11-16 N code = RDW) PLT (test code = PLT) 388 K/mm3 130-400 N MEAN PLATELET VOLUME (test code = 10.2 fL 8.9-12.1 N MPV) NEUTROPHIL % (test code = NT%) 55.1 % 45-70 N LYMPHOCYTE % (test code = LY%) 30.9 % 20-40 N MONOCYTE % (test code = MO%) 9.4 % 3-10 N EOSINOPHIL % (test code = EO%) 3.2 % 1-5 N BASOPHIL % (test code = BA%) 1.2 % 0.0-1.1 H NEUTROPHIL # (test code = NT#) 3.11 K/mm3 2.00-7.50 N LYMPHOCYTE # (test code = LY#) 1.74 K/mm3 1.50-4.00 N MONOCYTE # (test code = MO#) 0.53 K/mm3 0.2-0.8 N EOSINOPHIL # (test code = EO#) 0.18 K/mm3 0.04-0.4 N BASOPHIL # (test code = BA#) 0.07 K/mm3 0.02-0.10 N MANUAL DIFF REQUIRED (test code = NO MANUAL DIFF MDIFF) NUCLEATED RED BLOOD CELL (test 0 % 0-0 N code = NRBC)
--- NOTE | 2023-01-29 15:35 | RAD REPORT ---
EXAM DESCRIPTION: CT - CTHCSPWOC - 01/29/2023 3:07 pm CLINICAL HISTORY: fall, head injury COMPARISON: Chest Single View dated 01/29/2023 TECHNIQUE: Axial thin cut noncontrast CT images of the head were obtained. Axial thin cut noncontrast CT images of the cervical spine were obtained. Multiplanar reformatted images were generated and reviewed. All CT scans are performed using dose optimization technique as appropriate and may include automated exposure control or mA/KV adjustment according to patient size. FINDINGS: CT HEAD WITHOUT CONTRAST: No acute hemorrhage, hydrocephalus or extra-axial collection is identified. Mild diffuse parenchymal volume loss. Mild deep white matter hypodensities, nonspecific but suggestive of chronic small vessel ischemic changes. No areas of brain edema or midline shift. Right parietal scalp laceration and moderate soft tissue swelling. The paranasal sinuses and mastoids are clear.The calvarium is intact. CT CERVICAL SPINE WITHOUT CONTRAST: No fracture or subluxation.No prevertebral soft tissues swelling is identified. Mild multilevel dege nerative changes without bony canal stenosis. Variable degrees of neural foraminal narrowing, up to m oderate bilaterally at C5-6, and [id number] bilaterally more so on the right at C6-7. IMPRESSION: No acute traumatic intracranial or cervical spine findings. Chronic findings as above.
[2023-01-29 15:41] LABS: Hematocrit 37.7 % (36.0-45.0); Lymphocytes % 14.4 % (15.3-44.8); MCV 94.3 fL (80-100); MPV 7.2 fL (7.6-11.3)
[2023-01-29] MEDS ORDERED: Ringers Lactate 1,000 ML IV ONE (15:54)
[2023-01-29 16:13] LABS: Magnesium 2.2 mg/dL (1.6-2.4); Potassium 3.5 mmol/L (3.5-5.1)
[2023-01-29] MEDS ORDERED: LIDOCAINE 1% 20 ML MDV ONE (16:17)
--- NOTE | 2023-01-29 16:34 | RAD REPORT ---
EXAM DESCRIPTION: Gamal Single View01/29/2023 3:12 pm CLINICAL HISTORY: syncope COMPARISON: No comparisons TECHNIQUE: Portable AP view of the chest. FINDINGS: The lungs are clear. No pneumothorax or effusion. The cardiomediastinal contours are unrem arkable. IMPRESSION: No acute cardiopulmonary process.
[2023-01-29] MEDS ORDERED: TDAP (DIPHTH,PERTUSS(ACELL),TET VAC) 0.5 ML VIAL IMVAC ONE (17:36)
--- NOTE | 2023-01-29 18:42 | RAD REPORT ---
EXAM DESCRIPTION: CT - Chest For Pe Angio - 01/29/2023 5:57 pm CLINICAL HISTORY: syncope Fall. Head and neck pain. COMPARISON: Chest Single View dated 01/29/2023 TECHNIQUE: Thin axial CT images of the chest were obtained following administration of 95 mL Isovue 370 IV contrast. Multiplanar reconstructions, and maximum intensity projection reconstructions were g enerated and reviewed. Exam utilizes a protocol for optimal evaluation of pulmonary arterial tree. All CT scans are performed using dose optimization technique as appropriate and may include automated exposure control or mA/KV adjustment according to patient size. FINDINGS: Pulmonary arteries are normal. No emboli or other suspicious finding. Variant anatomy with direct origin of the left vertebral artery as the third vessel arising from the aortic arch. No acut e or significant aorta findings. No suspicious lung masses. Peripheral ground-glass opacities and micro nodularity in the lateral righ t lower lobe (axial image 46), nonspecific, and could relate to atelectasis or focal airspace disease . Right upper lobe segmental atelectasis. No pleural thickening or pleural effusion. No pneumothorax. No abnormal mediastinal or hilar masses or lymphadenopathy seen. No chest wall mass or abnormal axill iary lymphadenopathy. Numerous nonobstructing left renal calculi. The largest measures 5 millimeter. Atrophic changes of th e right kidney. IMPRESSION: No evidence of acute central pulmonary emboli. Small peripheral region of ground-glass opacification and micro nodularity in the right lateral lower lobe, could relate to atelectasis or focal airspace disease. Incidental findings including left renal calculi.
[2023-01-29] MEDS ORDERED: TRAMADOL HCL 50 MG TAB ONE (18:57)
[2023-01-29 20:21] VITALS: TEMP 97.9
[2023-01-29 20:22] VITALS: O2SAT 100
[2023-01-29 20:24] VITALS: BP 157/73
--- NOTE | 2023-02-01 13:12 | EKG ---
Test Date: 2023-01-29 Test Time: 15:20:33 Director Of Convention Services: RIA MEASUREMENT RESULTS: Intervals: Rate: 87 SD: QRSD: 84 QT: 370 QTc: 445 [place]: P: SD: QRS: 43 T: 70 INTERPRETIVE STATEMENTS: Sinus rhythm Septal infarct, age undetermined Abnormal ECG Compared to ECG 02/12/2020 17:12:17 Myocardial infarct finding now present Electronically Signed On 02-01-23 13:07:39 CDT by Oleg Mckeon
--- NOTE | 2023-02-12 16:03 | EDPHYS ---
Physician Documentation [facility] Name: Hai Camp Age: 82 yrs Sex: Female : 1940 Arrival Date: 01/29/2023 Time: 14:48 Bed 18 Private MD: ED Physician Christian Munoz HPI: 01/29 15:01 This 82 yrs old Female presents to ER via Wheelchair with complaints of Fall Injury, jmm Head Injury With LOC-Adult, Laceration To Head. 15:01 Is an 82-year-old female with history of hypertension the presents emerged department jmm presents emerged department after syncopal episode which occurred just prior to arrival. Patient does state having some shortness of breath she has had secondary to issues with renal stones. Patient had a procedure performed 1 week ago. Patient hit her head. Denies vomiting. Denies lower back pain.. Historical: - Allergies: 15:01 Cipro; ph 15:01 Codeine; ph - Home Meds: 15:01 losartan Oral [Active]; ph - PMHx: 15:01 breast cancer; Hypertension; ph - PSHx: 15:01 kidneystone removed; kidney biopsy; ph - Immunization history: Last tetanus immunization: unknown. - Social history:: Smoking status: Patient denies any tobacco usage or history of. ROS: 15:01 Constitutional: Negative for fever, chills, and weight loss, Cardiovascular: Negative jmm for chest pain, palpitations, and edema, Respiratory: Negative for shortness of breath, cough, wheezing, and pleuritic chest pain, Abdomen/GI: Negative for abdominal pain, nausea, vomiting, diarrhea, and constipation. 15:01 Neuro: Positive for syncope. 15:01 All other systems are negative. Exam: 15:01 Constitutional: This is a well developed, well nourished patient who is awake, alert, jmm and in no acute distress. 15:01 Eyes: EOMI, no conjunctival erythema appreciated ENT: Moist Mucus Membranes Neck: Trachea midline, Supple Chest/axilla: Normal chest wall appearance and motion. Cardiovascular: Regular rate and rhythm. No edema appreciated Respiratory: Normal respirations, no respiratory distress appreciated Abdomen/GI: Non distended Back: Normal ROM Skin: General appearance color normal 15:01 Head/face: 5 cm laceration noted to the posterior scalp. 15:01 Musculoskeletal/extremity: ROM: intact in all extremities. 15:01 Skin: Appearance: Color: normal in color. 15:01 Neuro: Orientation: is normal, Mentation: is normal, Memory: is normal. 15:01 Psych: Behavior/mood is pleasant, cooperative. Vital Signs: 14:57 Resp 18; Temp 97.9; Weight 76.66 kg; Height 5 ft. 2 in. ; ph 15:05 BP 137 / 85; Pulse 89; Pulse Ox 100% on R/A; ph 16:20 BP 110 / 51; Pulse 81; Resp 20 S; Pulse Ox 100% on R/A; kc6 18:08 BP 157 / 73; Pulse 79; Resp 21 S; Pulse Ox 100% on R/A; kc6 14:57 Body Mass Index 30.91 (76.66 kg, 157.48 cm) ph Mcallen Coma Score: 14:57 Eye Response: spontaneous(4). Motor Response: obeys commands(6). Verbal Response: kc6 oriented(5). Total: 15. Trauma Score (Adult): 14:57 Eye Response: spontaneous(1); Verbal Response: oriented(1); Motor Response: obeys kc6 commands(2); Systolic BP: > 89 mm Hg(4); Respiratory Rate: 10 to 29 per min(4); Sophia Score: 15; Trauma Score: 12 MDM: 15:01 Patient medically screened. [facility] 18:49 Differential diagnosis: scalp laceration, syncope. Data reviewed: vital signs, nurses [facility] notes, lab test result(s), EKG, radiologic studies, CT scan. I considered the following discharge prescriptions or medication management in the emergency department Medications were administered in the Emergency Department. See MAR. Historians other than the Patient: daughter. Counseling: I had a detailed discussion with the patient and/or guardian regarding: the historical points, exam findings, and any diagnostic results supporting the discharge/admit diagnosis, lab results, radiology results, the need for outpatient follow up, to return to the emergency department if symptoms worsen or persist or if there are any questions or concerns that arise at home. 01/29 15:02 Order name: Basic Metabolic Panel; Complete Time: 16:14 [facility] 01/29 15:02 Order name: CBC with Diff; Complete Time: 15:42 [facility] 01/29 15:02 Order name: Magnesium; Complete Time: 16:14 [facility] 01/29 15:02 Order name: Troponin HS; Complete Time: 16:14 [facility] 01/29 15:02 Order name: XRAY Chest (1 view); Complete Time: 16:52 [facility] 01/29 15:02 Order name: CT Head C Spine; Complete Time: 15:37 [facility] 01/29 17:23 Order name: CT Chest For PE Angio; Complete Time: 18:45 [facility] 01/29 15:02 Order name: EKG; Complete Time: 15:02 [facility] 01/29 15:02 Order name: Cardiac monitoring; Complete Time: 15:05 [facility] 01/29 15:02 Order name: EKG - Nurse/Tech; Complete Time: 15:26 [facility] 01/29 15:02 Order name: IV Saline Lock; Complete Time: 15:34 [facility] 01/29 15:02 Order name: Labs collected and sent; Complete Time: 15:34 [facility] 01/29 15:02 Order name: O2 Per Protocol; Complete Time: 15:05 [facility] 01/29 15:02 Order name: O2 Sat Monitoring; Complete Time: 15:05 [facility] Administered Medications: 16:16 Drug: Lactated Ringers Solution IV 1000 ml Route: IV; Rate: 500 ml/hr; Site: right kc6 antecubital; 19:22 Follow up: Response: No adverse reaction; IV Status: Completed infusion; IV Intake: kc6 1000ml 16:16 Drug: Lidocaine Infiltration (1 %) 20 ml Volume: 20 ml; Route: Infiltration; 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 kc6 Exp: 10/09/2023. Lot #: [id number]. } Route: IM; Site: right deltoid; 18:56 Follow up: Response: No adverse reaction [facility] 18:56 Drug: traMADol PO 50 mg Route: PO; [facility] 19:19 Follow up: Response: No adverse reaction; Pain is decreased; RASS: Alert and Calm (0) 6 Disposition Summary: 01/29/23 18:51 Discharge Ordered Location: Home [facility] Condition: Stable [facility] Diagnosis - Syncope jmm - Scalp Laceration [facility] Followup: jm - With: Private Physician - When: 2 - 3 days - Reason: Recheck today's complaints, Continuance of care, Re-evaluation by your physician Discharge Instructions: - Discharge Summary Sheet jmm - Facial Laceration jm - Syncope [facility] Forms: - Medication Reconciliation Form [facility] - Thank You Letter ashwin - Antibiotic Education adalberto - Prescription Opioid Use [facility] Addendum: 02/01/2023 08:43 Co-signature as Attending Physician, Christian Munoz MD I reviewed the patient's care r n provided by the Advanced Practice Provider and agree with the diagnosis and treatment plan. Signatures: Dispatcher [employer] EDShashi Anderson PA PA jmm Nieto, Roman, MD MD rn Hall, Patricia, RN RN Esther Coffey RN RN kc6
--- NOTE | 2023-02-12 16:03 | ER ---
Nurse's Notes [facility] Name: Hai Camp Age: 82 yrs Sex: Female : 1940 Arrival Date: 01/29/2023 Time: 14:48 Bed 18 Private MD: Diagnosis: Syncope;Scalp Laceration Presentation: 01/29 14:57 Chief complaint: Patient states: States, " I think I must have passed out and fell but ph I don't really remember what happened. My was outside and heard me yell and found me sitting down w/ a wound on my head." Laceration to back of head, minimal bleeding. Pt reports headache and neck pain, does not take blood thinners. Coronavirus screen: Vaccine status: Patient reports receiving the 2nd dose of the covid vaccine. Ebola Screen: No symptoms or risks identified at this time. Initial Sepsis Screen: Does the patient meet any 2 criteria? No. Patient's initial sepsis screen is negative. Does the patient have a suspected source of infection? No. Patient's initial sepsis screen is negative. Risk Assessment: Do you want to hurt yourself or someone else? Patient reports no desire to harm self or others. Onset of symptoms was January 29, 2023. 14:57 Method Of Arrival: Wheelchair ph 14:57 Acuity: CAMELIA 2 ph 14:57 Care prior to arrival: None. Mechanism of Injury: Fall out of chair. Trauma event kc6 details: Injury occurred in the [facility], Injury occurred: at home. Trauma Activation: Alert Physician: ED Physician; Name: ; Notified At: ; Arrived At: Physician: General Surgeon; Name: ; Notified At: ; Arrived At: Physician: Radiology; Name: ; Notified At: ; Arrived At: Physician: Respiratory; Name: ; Notified At: ; Arrived At: Physician: Lab; Name: ; Notified At: ; Arrived At: Historical: - Allergies: 15:01 Cipro; ph 15:01 Codeine; ph - Home Meds: 15:01 losartan Oral [Active]; ph - PMHx: 15:01 breast cancer; Hypertension; ph - PSHx: 15:01 kidneystone removed; kidney biopsy; ph - Immunization history: Last tetanus immunization: unknown. - Social history:: Smoking status: Patient denies any tobacco usage or history of. Screenin:57 [facility] ED Fall Risk Assessment (Adult) History of falling in the last 3 months, kc6 including since admission Yes- physiologic fall (2 pts) Confusion or Disorientation No (0 pts) Intoxicated or Sedated No (0 pts) Impaired Gait No (0 pts) Mobility Assist Device Used No (0 pt) Altered Elimination No (0 pt) Score/Fall Risk Level 0 - 2 = Low Risk Oriented to surroundings, Maintained a safe environment, Educated pt \\T\\ family on fall prevention, incl call for assistance when getting out of bed, Assessed \\T\\ reinforced patient's understanding of fall precautions, Hourly rounding (assess needs \\T\\ fall precautionary measures) done. Abuse screen: Denies threats or abuse. Denies injuries from another. Nutritional screening: No deficits noted. Tuberculosis screening: No symptoms or risk factors identified. Primary Survey: 14:57 NO uncontrolled hemorrhage observed. kc6 15:02 Breathing/Chest: Spontaneous respiratory effort, equal unlabored respirations, breath kc6 sounds clear bilaterally, regular pattern, symmetrical chest rise and fall. Circulation: No external hemorrhage present. Regular and strong central pulse, skin warm/dry/normal color. Disability Pupils are equal, round, reactive to light and accommodation. Exposure/Environment: There is no evidence of uncontrolled external bleeding. Obvious injury(ies) are noted at this time: laceration to the posterior head A warming method has been applied: A warm blanket has been provided to the patient. 15:30 Reassessment Alertness and Airway: Awake and alert. The airway is patent. Breathing: kc6 Spontaneous respiratory effort, equal unlabored respirations, breath sounds clear bilaterally, regular pattern with symmetrical chest rise and fall. Circulation: No external hemorrhage noted. Regular and strong central pulse, skin warm/dry/normal color. Disability: Pupils Pupils are equal, round, reactive to light and accomodation. Secondary Survey: 14:57 HEENT: Head Other laceration to the posterior head Face No injury/deformity Eyes: No kc6 injury or deformity noted. to bilateral eyes. Ears: clear Nose: clear to bilateral nares. Throat: No injury or deformity noted. is clear with gag reflex present. 14:57 Gastrointestinal: No deficits noted. : No signs and/or symptoms were reported kc6 regarding the genitourinary system. Musculoskeletal: No signs and/or symptoms reported regarding the musculoskeletal system. Assessment: 14:57 General: Appears in no apparent distress. comfortable, Behavior is calm, cooperative, kc6 appropriate for age. Pain: Denies pain. Neuro: Cortes Agitation-Sedation Scale (RASS): 0 - Alert and Calm Level of Consciousness is awake, alert, obeys commands, Oriented to person, place, time, situation, Appropriate for age Reports dizziness, lightheadedness. Cardiovascular: Heart tones S1 S2 present Capillary refill < 3 seconds. Respiratory: Airway is patent Trachea midline Respiratory effort is even, unlabored, Respiratory pattern is regular, symmetrical, Breath sounds are clear bilaterally. GI: No signs and/or symptoms were reported involving the gastrointestinal system. : No signs and/or symptoms were reported regarding the genitourinary system. EENT: No signs and/or symptoms were reported regarding the EENT system. Derm: No signs and/or symptoms reported regarding the dermatologic system. Skin is intact, Wound noted scalp. Musculoskeletal: No signs and/or symptoms reported regarding the musculoskeletal system. Circulation, motion, and sensation intact. Capillary refill < 3 seconds, Range of motion: intact in all extremities. 15:57 Reassessment: Patient appears in no apparent distress at this time. No changes from kc6 previously documented assessment. Patient and/or family updated on plan of care and expected duration. Pain level reassessed. Patient is alert, oriented x 3, equal unlabored respirations, skin warm/dry/pink. 16:57 Reassessment: Patient appears in no apparent distress at this time. No changes from kc6 previously documented assessment. Patient and/or family updated on plan of care and expected duration. Pain level reassessed. Patient is alert, oriented x 3, equal unlabored respirations, skin warm/dry/pink. 17:57 Reassessment: Patient appears in no apparent distress at this time. No changes from kc6 previously documented assessment. Patient and/or family updated on plan of care and expected duration. Pain level reassessed. Patient is alert, oriented x 3, equal unlabored respirations, skin warm/dry/pink. 18:57 Reassessment: Patient appears in no apparent distress at this time. No changes from kc6 previously documented assessment. Patient and/or family updated on plan of care and expected duration. Pain level reassessed. Patient is alert, oriented x 3, equal unlabored respirations, skin warm/dry/pink. Vital Signs: 14:57 Resp 18; Temp 97.9; Weight 76.66 kg; Height 5 ft. 2 in. ; ph 15:05 BP 137 / 85; Pulse 89; Pulse Ox 100% on R/A; ph 16:20 BP 110 / 51; Pulse 81; Resp 20 S; Pulse Ox 100% on R/A; kc6 18:08 BP 157 / 73; Pulse 79; Resp 21 S; Pulse Ox 100% on R/A; kc6 14:57 Body Mass Index 30.91 (76.66 kg, 157.48 cm) ph Sophia Coma Score: 14:57 Eye Response: spontaneous(4). Motor Response: obeys commands(6). Verbal Response: kc6 oriented(5). Total: 15. Trauma Score (Adult): 14:57 Eye Response: spontaneous(1); Verbal Response: oriented(1); Motor Response: obeys kc6 commands(2); Systolic BP: > 89 mm Hg(4); Respiratory Rate: 10 to 29 per min(4); Northrop Score: 15; Trauma Score: 12 ED Course: 14:48 Patient arrived in ED. jj6 14:50 Esther Coffey, MILES is Primary Nurse. kc6 14:51 Shashi Mckeon PA is PHCP. [facility] 14:51 Christian Munoz MD is Attending Physician. [facility] 14:57 Arm band placed on. kc6 14:57 Patient maintains SpO2 saturation greater than 95% on room air. Thermoregulation: warm kc6 blanket given to patient. 14:59 Patient has correct armband on for positive identification. Bed in low position. Call kc6 light in reach. Side rails up X 1. Adult w/ patient. 15:00 Triage completed. ph 15:09 CT Head C Spine In Process Unspecified. EDMS 15:12 XRAY Chest (1 view) In Process Unspecified. EDMS 15:28 Initial lab(s) drawn, by me, sent to lab. Inserted saline lock: 22 gauge in right aa5 antecubital area, using aseptic technique. Blood collected. 17:59 CT Chest For PE Angio In Process Unspecified. EDMS 19:19 No provider procedures requiring assistance completed. IV discontinued, intact, kc6 bleeding controlled, No redness/swelling at site. Pressure dressing applied. 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 kc6 Exp: 10/09/2023. Lot #: [id number]. } Route: IM; Site: right deltoid; 18:56 Follow up: Response: No adverse reaction kc6 18:56 Drug: traMADol PO 50 mg Route: PO; kc6 19:19 Follow up: Response: No adverse reaction; Pain is decreased; RASS: Alert and Calm (0) kc6 Medication: 19:20 VIS not applicable for this client. kc6 Intake: 19:20 IV: 1000ml (IV Fluid); Total: 1000ml. kc6 19:22 IV: 1000ml; Total: 2000ml. kc6 Outcome: 18:51 Discharge ordered by MD. ashwin 19:20 Discharged to home via wheelchair, with family. kc6 19:20 Condition: stable 19:20 Discharge instructions given to patient, family, Instructed on discharge instructions, follow up and referral plans. Demonstrated understanding of instructions, follow-up care. 19:20 Patient's length of stay was not longer than 2 hours. kc6 19:21 Patient left the ED. kc6 Signatures: Dispatcher [employer] EDMS Shashi Mckeon PA PA jmm Calderon, Audri, RN RN aa5 Arpita Braxton RN RN Jimena Morales j6 Esther Coffey RN RN kc6 Corrections: (The following items were deleted from the chart) 15:02 15:02 NO uncontrolled hemorrhage observed kc6 kc6 16:20 15:03 Reassessment Breathing: kc6 kc6
== END 2023-01-29 19:21 | disposition home or self-care (01) ==
LOC: ER 14:43
DX: R55 Syncope and collapse (principal); S01.01XA Laceration without foreign body of scalp, initial encounter; I10 Essential (primary) hypertension; Z23 Encounter for immunization; Z85.3 Personal history of malignant neoplasm of breast; Z88.1 Allergy status to other antibiotic agents; Z88.5 Allergy status to narcotic agent
CPT/HCPCS: 96361; 93005; 85025; 80048; 36415; 83735; 84484; 70450; 72125; 71275; 71045; 90471; 96360; 99284; Q9967; J2001; J7120